=== PATIENT | male | born 1945 | race Caucasian/White ===

== ENCOUNTER 2018-09-19 10:05 | Inpatient (IN) ==
--- NOTE | 2018-09-19 10:26 | Emergency Department Note ---
Disposition Clinical Impression: Sepsis, Altered mental status, Anemia, Hypoxia, Near syncope, Prostatitis, Colitis Disposition: Admitted As Inpatient Condition: Serious Forms: ED Satisfaction Letter Time of Disposition: 14:22 Altered Mental Status HPI - General Chief Complaint: ED Altered Mental Status Stated Complaint: AMS in and out Time Seen by Provider: 09/19/18 10:05 Source: patient, EMS Mode of arrival: EMS Limitations: no limitations Nursing Notes Reviewed: Yes Vital Signs Reviewed: Yes - History of Present Illness HPI Narrative: 73-year-old male who presents emergency room his had near syncopal episode work. 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 He denies fever chills joint aches rash or lesions. He denies any abdominal pain. Denies any blurred vision double vision loss vision. She states that he just cannot explain how he is feeling. Recently started on Augmentin for sinus infection. He denies any shortness of breath chest patches pressure that would be consistent with a anaphylactic type reaction. Patient just states he just does not feel well and explained. He states this is not like it was when he had his cardiac event also systems have been reviewed and are limited with complete entire review systems. 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 Review of Systems: As Per HPI Constitutional: Reports: weakness. Denies: fever, chills Eyes: Denies: eye pain, eye discharge ENT ED: Denies: ear pain, throat pain Cardiovascular: Reports: syncope. Denies: chest pain, palpitations Respiratory: Denies: cough, dyspnea Gastrointestinal: Reports: nausea, vomiting. Denies: abdominal pain Genitourinary: Denies: urgency, dysuria, frequency Musculoskeletal: Denies: back pain, neck pain Integumentary: Denies: rash Neurological: Reports: weakness, confusion. Denies: headache Psychiatric: Denies: anxiety Endocrine: Reports: fatigue. Denies: heat or cold intolerance Hematological/Lymphatic: Denies: easy bleeding, easy bruising Allergic/Immunologic: Denies: facial swelling Past Medical History - Past Medical History Attestation: Yes The following information was validated with the patient. Source: patient, old records reviewed, obtained from family, nursing notes reviewed Medical history: Reports: coronary artery disease, GERD, hyperlipidemia, hypertension, thyroid disease, other Surgical history: Reports: coronary bypass (CABG) (99% blockage left main; performed at [facility] 12/27/2014; Sees Dr. Prasad and Dr. Recinos.), herniorrhaphy, other (Orchiopexy; Laser vaporization of prostate May 21, 2016) Psychiatric history: Reports: no psych history - Social History Smoking Status: Never smoker Smokeless Tobacco Status: No Alcohol use: Reports: none Drug use: Reports: none Physical Exam - General Limitations: no limitations General appearance: alert, in no apparent distress - Head Head exam: atraumatic, normocephalic, normal inspection - Eye Eye exam: Present: normal appearance, PERRL, EOMI - ENT ENT exam: normal exam, normal oropharynx, mucous membranes moist, TM's normal bilaterally, normal external ear exam - Neck Neck exam: Present: normal inspection, full ROM, trachea midline - Chest Chest inspection: Present: normal inspection, symmetric chest wall rise - Respiratory Respiratory exam: Present: normal lung sounds bilaterally - Cardiovascular Cardiovascular exam: Present: regular rate, normal rhythm, normal heart sounds - Abdominal Exam Abdominal exam: Present: soft, tenderness, distention, hyperactive bowel sounds. Absent: mass, pulsatile mass - Expanded Upper Extremity Exam Shoulder exam: Present: normal inspection, full ROM Arm exam: Present: normal inspection, full ROM Elbow exam: Present: normal inspection, full ROM Forearm/Wrist exam: Present: normal inspection, full ROM Hand exam: Present: normal inspection, full ROM Vascular exam: Normal: capillary refill, radial pulse - Expanded Lower Extremity Exam Hip/Pelvis exam: Present: normal inspection, full ROM Upper leg exam: Present: normal inspection, full ROM Knee exam: Present: normal inspection, full ROM Lower leg exam: Present: normal inspection, full ROM Ankle exam: Present: normal inspection, full ROM Foot/toe exam: Present: normal inspection, full ROM Neurovascular/Tendon exam: Present: normal capillary refill, normal fine/light touch. Absent: motor deficit, sensory deficit, tendon deficit Gait: observed and normal - Back Exam Back exam: Present: normal inspection, full ROM. Absent: muscle spasm - Neurological Exam Neurological exam: Present: alert, oriented X3, CN II-XII intact - Psychiatric Psychiatric exam: Present: normal affect, normal mood - Skin Skin exam: Present: warm, intact, normal color, diaphoresis Course Course Narrative: Patient was immediately seen and evaluated laboratory data was done we were concerned about the possibility of an abdominal aortic aneurysm by his presentation as well as myocardial infarctions stroke patient was shoveling signs of altered mental status and is result started and fluid resuscitation was started weight 160 this patient received fluids altered mental status significantly started to improve but he still could not denies pain or discomfort he was recently started on antibiotics for sinus infection even be concerned for C. difficile. Patient arrived here felt that he needed to sit on a bedside and wanted push with patient to the traffic monitor specialist patient defecated a large voluminous stool followed by a second fairly large was more liquid. During this time the patient's d-dimer came back at over 10,[address] had a [address] PE study and aware that the patient only has one kidney but also the greatest risk for this being consistent with a thrombus within the vascular system I possible the phone contact with his daughter Nuris in regards to this lab findings and the importance of following up which she is understanding because of the patient's condition went ahead and CAT scanned his abdomen and pelvis region to make sure that there was no intra-abdominal process which should be consistent with abdominal aortic aneurysm or bowel obstruction or infectious process white count came back at normal but his hemoglobin and hematocrit showed that he had anemia in reviewing of chemistries he had an elevated d-dimer elevated lactic acid and had a decreased CO2 which is more consistent with him being dehydrated and possibly being septic as result the patient will be admitted I spoke with patient and the daughter they are both agreeable and IV hydrating we placed him on anabolic's for the colitis prostatitis which is visualized WE also advised the family that he does have gallstones but does not appear to be consistent with acute cholecystitis patient showed significant im provement with the fluid resuscitation with place him on Flagyl and Cipro transferred to [facility] improved and stable Vital Signs Temperature 96.9 F L 09/19/18 10:07 Pulse Rate 72 09/19/18 10:07 Respiratory Rate 22 09/19/18 10:07 Blood Pressure 95/55 09/19/18 10:07 O2 Sat by Pulse Oximetry 76 09/19/18 10:07 Temperature 96.9 F L 09/19/18 10:07 Pulse Rate 70 09/19/18 12:24 Respiratory Rate 18 09/19/18 12:24 Blood Pressure 149/71 09/19/18 12:24 O2 Sat by Pulse Oximetry 99 09/19/18 12:24 Oxygen Delivery Oxygen Delivery Oximizer Altered Mental Status - Differential Diagnosis Likely: altered mental status, hypoglycemia, hyponatremia, sepsis - Medical Records Medical records reviewed: Yes I reviewed the patient's medical records. - Lab Data Lab results reviewed: Yes I reviewed the patient's lab results. Result diagrams: 09/19/18 10:40 09/19/18 10:40 Lab Results 09/19/18 09/19/18 09/19/18 Range/Units 10:40 10:40 10:40 WBC 5.0 (4.3-11.1) K/mcL RBC 5.28 (4.19-5.50) M/mcL Hgb 10.3 L (12.9-16.9) g/dL Hct 35.3 L (37.5-50.1) % MCV 66.9 L (83.0-100.0) fL MCH 19.5 L (28.0-33.3) pg MCHC 29.2 L (31.6-35.5) g/dL RDW 22.3 H (11.5-14.5) % Plt Count 252 (140-400) K/mcL MPV TNP Immature Gran % 0.4 (0-4) % Seg Neutrophils % 70.9 % Lymphocytes % 22.7 % Monocytes % 3.0 % Eosinophils % 2.8 % Basophils % 0.2 % Neutrophils # 3.6 (1.6-8.9) K/mcL Lymphocytes # 1.1 (0.6-4.6) K/mcL Monocytes # 0.2 (0.0-1.3) K/mcL Eosinophils # 0.1 (0.0-0.6) K/mcL Basophils # 0.0 (0.0-0.2) K/mcL Polychromasia 1+ A (Not Present) Hypochromasia Present A (Not Present) Poikilocytosis 1+ A (Not Present) Anisocytosis 2+ A (Not Present) Microcytosis Present A (Not Present) PT 12.9 H (9.4-12.1) Seconds INR 1.1 APTT 29.2 (26.0-36.0) Seconds D-Dimer [id number] H (0-500) ng/mLFEU Sample Site ABG pH (7.32-7.45) pH Units ABG pCO2 (35-45) mmHg ABG pO2 (85-104) mmHg ABG HCO3 (21-27) mEq/L ABG Total CO2 (20-26) mEq/L ABG O2 Saturation (95-98) % ABG Base Excess (-2 to 3) mEq/L Eligio Test O2 Delivery Device Inspired O2 (1-15=lpm [id number]=%) Sodium 137 (136-145) mEq/L Potassium 3.5 (3.5-5.1) mEq/L Chloride 104 (98-107) mEq/L Carbon Dioxide 20 L (23-29) mEq/L BUN 19 (8-23) mg/dL Creatinine 1.25 (0.70-1.30) mg/dL Est GFR ( Amer) > 60 (> 60) Est GFR (Non-Af Amer) 57 L (> 60) BUN/Creatinine Ratio 15 (6-26) Glucose 213 H (70-105) mg/dL Calculated Osmolality 293 (280-300) Lactic Acid (0.5-2.2) mmol/L Calcium 8.3 L (8.6-10.3) mg/dL Total Bilirubin 0.5 (0.3-1.0) mg/dL AST 19 (13-39) Units/L ALT 13 (7-52) Units/L Alkaline Phosphatase 60 (34-104) Units/L Troponin I < 0.03 (< 0.04) ng/mL Serum Total Protein 6.4 (6.4-8.9) g/dL Albumin 3.5 (3.5-5.7) g/dL Globulin 2.9 (2.4-3.5) g/dL Albumin/Globulin Ratio 1.2 (1.1-2.2) TSH (0.340-5.600) mcIU/mL Person Notif of Crit 09/19/18 09/19/18 09/19/18 Range/Units 10:40 10:40 10:54 WBC (4.3-11.1) K/mcL RBC (4.19-5.50) M/mcL Hgb (12.9-16.9) g/dL Hct (37.5-50.1) % MCV (83.0-100.0) fL MCH (28.0-33.3) pg MCHC (31.6-35.5) g/dL RDW (11.5-14.5) % Plt Count (140-400) K/mcL MPV Immature Gran % (0-4) % Seg Neutrophils % % Lymphocytes % % Monocytes % % Eosinophils % % Basophils % % Neutrophils # (1.6-8.9) K/mcL Lymphocytes # (0.6-4.6) K/mcL Monocytes # (0.0-1.3) K/mcL Eosinophils # (0.0-0.6) K/mcL Basophils # (0.0-0.2) K/mcL Polychromasia (Not Present) Hypochromasia (Not Present) Poikilocytosis (Not Present) Anisocytosis (Not Present) Microcytosis (Not Present) PT (9.4-12.1) Seconds INR APTT (26.0-36.0) Seconds D-Dimer (0-500) ng/mLFEU Sample Site R Radial ABG pH 7.37 (7.32-7.45) pH Units ABG pCO2 31 L (35-45) mmHg ABG pO2 49 L* (85-104) mmHg ABG HCO3 18 L (21-27) mEq/L ABG Total CO2 19 L (20-26) mEq/L ABG O2 Saturation 84 L (95-98) % ABG Base Excess -6 L (-2 to 3) mEq/L Eligio Test Positive O2 Delivery Device Cannula Inspired O2 4.0 (1-15=lpm ei32-319=%) Sodium (136-145) mEq/L Potassium (3.5-5.1) mEq/L Chloride (98-107) mEq/L Carbon Dioxide (23-29) mEq/L BUN (8-23) mg/dL Creatinine (0.70-1.30) mg/dL Est GFR ( Amer) (> 60) Est GFR (Non-Af Amer) (> 60) BUN/Creatinine Ratio (6-26) Glucose (70-105) mg/dL Calculated Osmolality (280-300) Lactic Acid 3.5 H (0.5-2.2) mmol/L Calcium (8.6-10.3) mg/dL Total Bilirubin (0.3-1.0) mg/dL AST (13-39) Units/L ALT (7-52) Units/L Alkaline Phosphatase (34-104) Units/L Troponin I (< 0.04) ng/mL Serum Total Protein (6.4-8.9) g/dL Albumin (3.5-5.7) g/dL Globulin (2.4-3.5) g/dL Albumin/Globulin Ratio (1.1-2.2) TSH 10.917 H (0.340-5.600) mcIU/mL Person Notif of Enrique Brown - Radiology Data Radiology results reviewed: Yes I reviewed the patient's radiology results. - EKG Data EKG attestation: Yes I reviewed and interpreted this EKG. EKG results narrative: Sinus rhythm rate 72 NM 167 QRS 75 QT 406 access 26 TPA Checklist - LKW: 3-4.5 hrs Add. Warnings/Precautions Patient/family understanding: The patient/family members have been counseled and understood the risk, benefit, and alternatives of treatment. Critical Care Time Critical Care Time: Yes Total Critical Care Time: 35 Attestation: High probability clinically significant life-threatening deterioration patient condition exclusive reportable procedures Sepsis Event Note - Evaluation Sepsis Screen: No Definite Risk Current Stage of Suspected Sepsis: sepsis Possible Source of Sepsis: GI tract/intra-abdominal - Focused Exam Date of Encounter: 09/19/18 Time of Encounter: 13:10 Vital Signs: Vital Signs Temp Pulse Resp BP Pulse Ox 09/19/18 12:24 70 18 149/71 99 09/19/18 12:00 70 18 149/71 96 09/19/18 11:07 65 18 102/52 92 09/19/18 10:28 69 18 108/53 79 09/19/18 10:10 80 09/19/18 10:07 96.9 F L 72 22 95/55 76 Respiratory Exam: Present: CTA bilaterally Cardiovascular Exam: Present: RRR Capillary Refill: < 2 seconds Peripheral Pulse Strength: 3+ normal Peripheral Pulse Location: Radial Skin Exam: normal turgor - Bedside Monitoring Bedside Ultrasound Performed: No Passive Leg raise/fluid bolus: fluid responsive
[2018-09-19] MEDS ORDERED: Isovue-370 500 ML BOTTLE IVP ONE ×2 (10:31→15:25)
[2018-09-19] MEDS: 0.9 % Sodium Chloride 1,000 ML IVC ONE ×2 (10:51→12:30)
[2018-09-19] MEDS ORDERED: *HR* Promethazine 25 MG/ML VIAL IVP ONE (10:53)
[2018-09-19 10:59] LABS: ABG Base Excess -6 mEq/L (-2 to 3); ABG HCO3 18 mEq/L (21-27); ABG Oxygen Saturation 84 % (95-98); ABG PCO2 31 mmHg (35-45); ABG PH 7.37 pH Units (7.32-7.45); ABG PO2 49 mmHg (85-104); ABG TCO2 19 mEq/L (20-26)
[2018-09-19 11:03] LABS: INR 1.1; Prothrombin Time 12.9 Seconds (9.4-12.1)
[2018-09-19 11:06] LABS: Activated Partial Thrombo Time 29.2 Seconds (26.0-36.0)
[2018-09-19 11:15] LABS: Troponin I < 0.03 ng/mL (< 0.04)
[2018-09-19 11:26] LABS: Basophils % 0.2 %; Eosinophils # 0.1 K/mcL (0.0-0.6); Eosinophils % 2.8 %; Hematocrit 35.3 % (37.5-50.1); Hemoglobin 10.3 g/dL (12.9-16.9); Immature Granulocytes % 0.4 % (0-4); Lymphocytes # 1.1 K/mcL (0.6-4.6); Lymphocytes % 22.7 %; Mean Corpuscular HGB Conc 29.2 g/dL (31.6-35.5); Mean Corpuscular Hemoglobin 19.5 pg (28.0-33.3); Mean Corpuscular Volume 66.9 fL (83.0-100.0); Monocytes # 0.2 K/mcL (0.0-1.3); Neutrophils # 3.6 K/mcL (1.6-8.9); Platelet Count 252 K/mcL (140-400); Red Blood Count 5.28 M/mcL (4.19-5.50); Red Cell Distribution Width 22.3 % (11.5-14.5); Segmented Neutrophils % 70.9 %
[2018-09-19 11:40] LABS: Anisocytosis 2+ (Not Present); Hypochromasia Present (Not Present); Microcytosis Present (Not Present); Poikilocytosis 1+ (Not Present); Polychromasia 1+ (Not Present)
[2018-09-19 11:53] LABS: Alanine Aminotransferase 13 Units/L (7-52); Albumin 3.5 g/dL (3.5-5.7); Albumin/Globulin Ratio 1.2 (1.1-2.2); Alkaline Phosphatase 60 Units/L (34-104); Aspartate Amino Transferase 19 Units/L (13-39); BUN/Creatinine Ratio 15 (6-26); Bilirubin,Total 0.5 mg/dL (0.3-1.0); Blood Urea Nitrogen 19 mg/dL (8-23); Calcium 8.3 mg/dL (8.6-10.3); Carbon Dioxide 20 mEq/L (23-29); Chloride 104 mEq/L (98-107); Globulin 2.9 g/dL (2.4-3.5); Glucose 213 mg/dL (70-105); Osmolality,Calculated 293 (280-300); Potassium 3.5 mEq/L (3.5-5.1); Sodium 137 mEq/L (136-145); Total Protein 6.4 g/dL (6.4-8.9); eGFR For African Americans > 60 (> 60); eGFR For Non-African Americans 57 (> 60)
[2018-09-19] MEDS ORDERED: 0.9 % Sodium Chloride 1,000 ML IVC ONE (13:16)
[2018-09-19] MEDS ORDERED: MetroNIDAZOLE 500 MG/100 ML 500 MG/100 ML BAG IVPB ONE (13:16)
[2018-09-19 15:05] LABS: Bilirubin,Urine Negative (Negative); Blood,Urine Negative (Negative); Clarity,Urine Clear (Clear); Color,Urine Yellow (Yellow); Glucose,Urine (UA) Normal (Normal); Ketones,Urine Negative (Negative); Leukocyte Esterase,Urine Negative (Negative); Nitrite,Urine Negative (Negative); Protein,Urine 100 mg/dL (Neg-Trace); Specific Gravity,Urine 1.015 (1.010-1.025); Urobilinogen,Urine Normal (Normal)
[2018-09-19 15:18] LABS: Bacteria,Urine Few per hpf (None-Few); Hyaline Casts,Urine Few per lpf (None-Few); Mucus,Urine Few (Few); Squamous Epithelial Cell,Urine Few per lpf (None-Few)
[2018-09-19] MEDS ORDERED: *HR* Promethazine 25 MG/ML VIAL IVP PRN (15:25)
[2018-09-19] MEDS ORDERED: 0.9 % Sodium Chloride 1,000 ML IVC SCH (15:25)
[2018-09-19] MEDS ORDERED: Naloxone 0.4 MG/ML INJ IVP PRN (15:25)
[2018-09-19] MEDS: MetroNIDAZOLE 500 MG/100 ML 500 MG/100 ML BAG IVPB SCH (16:52)
--- NOTE | 2018-09-19 17:35 | Internal Med History&Physical ---
Date of Encounter: 09/19/18 Time of Encounter: 16:50 Assessment and Plan (1) Colitis Current visit: Yes Status: Acute Etiology not obvious. IV Flagyl and Cipro have been started in emergency room. Pro-calcitonin and fecal lactoferrin will be ordered. Further workup will be done as needed. (2) Syncope Current visit: Yes Status: Acute Possible vasovagal related to anemia and lower abdominal discomfort. Cardiac monitoring has been ordered. Qualifiers: Syncope type: unspecified Qualified Code(s): R55 - Syncope and collapse (3) DM type 2 (diabetes mellitus, type 2) Current visit: Yes Status: Chronic Hemoglobin A1c will be checked in a.m. Qualifiers: Diabetes mellitus predatory animal exterminator insulin use: with predatory animal exterminator use Diabetes mellitus complication status: without complication Qualified Code(s): E11.9 - Type 2 diabetes mellitus without complications; Z79.4 - long-term (current) use of insulin (4) ASHD (arteriosclerotic heart disease) Current visit: Yes Status: Acute Continue Lopressor. Hold aspirin until bleeding has stopped (5) Hypothyroidism Current visit: Yes Status: Chronic TSH was elevated at 10.917 in ER. Synthroid dose will be increased to 175 g daily. Qualifiers: Hypothyroidism type: unspecified Qualified Code(s): E03.9 - Hypothyroidism, unspecified (6) Anemia Current visit: Yes Status: Acute Microcytic. Suspect iron deficiency from chronic blood loss. Anemia testing will be done in a.m. He will likely need parenteral iron infusion. Qualifiers: Anemia type: iron deficiency Iron deficiency anemia type: unspecified iron deficiency Qualified Code(s): D50.9 - Iron deficiency anemia, unspecified Internal Medicine - H&P: HPI Chief complaint: Syncope, microcytic anemia Admitted From: Emergency Dept Plans for Post Hospital Care: Home History of present illness: Mr. Salguero is a 73 year old male who was brought to the ER after experiencing a syncopal episode while doing routine activities while sitting at work. He denies any pain. He reports having sensation of leg cramps, numb lips, and pruritus of his hands shortly before experiencing the syncopal episode. He was evaluated in emergency room and was found to have markedly elevated d-dimer. Chest CTA showed no PE. Abdominal CT showed mild colonic thickening without evidence of inflammation. He had an episode of hematochezia in emergency room. He was admitted to [facility] floor for ongoing care needs. He reports receiving a prescription for Augmentin and probiotic from his PCP yesterday for a diagnosis of sinusitis. He reports taking one Augmentin pill last evening. He experienced leg cramps numbness of lips and pruritus of his hands last evening also. He denies previous melena or hematochezia. His most recent colonoscopy was approximately 2004. He denies disorders of his liver gallbladder or exocrine pancreas. Asymptomatic cholelithiasis was identified on abdominal CT in emergency room. Past Med Surg Social Fam HX - Past Medical History Medical history: coronary artery disease, GERD, hyperlipidemia, hypertension, thyroid disease, other Additional medical history: prostate Psychiatric history: no psych history - Past Surgical History Surgical History: coronary bypass (CABG) (99% blockage left main; performed at [facility] 12/27/2014; Sees Dr. Prasad and Dr. Recinos.), herniorrhaphy, other (Orchiopexy; Laser vaporization of prostate May 21, 2016) Additional surgical history: hernia. right testicle. double bypass - Social History Smoking Status: Never smoker Smokeless Tobacco Status: No Alcohol use: none Drug use: none Internal Medicine - H&P: Meds Aspirin Enteric Coated [Aspirin EC] 81 mg PO DAILY 12/25/14 [History] Levothyroxine [Synthroid] 125 mcg PO 0630 12/25/14 [History] Atorvastatin [Lipitor] 10 mg PO HS 05/14/17 [History] Metoprolol Tartrate [Lopressor] 25 mg PO DAILY 05/14/17 [History] Amoxicillin/Clavulanate [Augmentin] 875 mg PO BIDWM 09/19/18 [History] Allergy/AdvReac Type Severity Reaction Status Date / Time No Known Allergies Allergy Verified 12/20/17 21:39 All Systems PM: A 10-system review of systems was performed and is negative for pertinent f indings except as documented above in the HPI. Review of systems: Gen.: He states his weight has decreased approximately 8 pounds in the past year, intentionally Cardiovascular: He has history of hypertension and known ASHD status post [place] 2 in 2014. He underwent 3 vessel CABG 2014 but has had no follow-up heart cath or stress test. He denies known heart failure DVT or pulmonary embolus. Respiratory: He is a lifelong nonsmoker and denies known chronic lung disease. GI: As per history of present illness : He has congenitally absent left kidney. He had the mental hernia repair and left undescended testicle removed. He had laser ablation treatment to the prostate twice. 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 Neurologic: He denies large distribution strokes or seizures. Endocrine: He has been diagnosed with borderline DM 2. He has hyperlipidemia and hypothyroidism Hematology/oncology: He was unaware he had anemia on labs in emergency room. He denies internal malignancies or other blood disorders Psychiatric: He denies anxiety depression or other mental health issues [place] skeletal: He denies arthritis gout or other bone joint or muscle disorders. - Constitutional Vitals: Temp Pulse Resp BP Pulse Ox 97.5 F L 66 18 166/79 100 09/19/18 15:31 09/19/18 15:31 09/19/18 15:31 09/19/18 15:31 09/19/18 15:31 Exam: Gen.: He is a well-developed well-nourished male resting comfortably in bed who appears in no significant distress HEENT: Head is atraumatic and normocephalic. Eyes: EOMI. There is no scleral icterus. Mouth: Mucosa is moist. Neck: Supple and nontender. There is no thyromegaly or adenopathy noted. Heart: Regular without murmurs gallops or ectopics Lungs: No wheezes or crackles are heard. Abdomen: Soft and nontender. No masses or guarding are noted. Extremities: There is no cyanosis edema or clubbing noted. Dorsalis pedis and posterior tibial pulses are 1-2 over 2 bilaterally. Neurologic: Mental status: He is talkative and a good historian. Cranial nerves: Smile is symmetric. Forehead wrinkles bilaterally. Tongue protrudes midline. EOMI. Motor: There is no pronator drift. Cerebellar: Finger to nose is intact bilaterally. Skin: Warm and dry Internal Med - H&P Results - Labs CBC & Chem 7: 09/19/18 10:40 09/19/18 10:40 Labs: Short CBC 09/19/18 Range/Units 10:40 WBC 5.0 (4.3-11.1) K/mcL Hgb 10.3 L (12.9-16.9) g/dL Hct 35.3 L (37.5-50.1) % Plt Count 252 (140-400) K/mcL Neutrophils # 3.6 (1.6-8.9) K/mcL BMP 09/19/18 10:40 Sodium 137 Potassium 3.5 Chloride 104 Carbon Dioxide 20 L BUN 19 Creatinine 1.25 Glucose 213 H Calcium 8.3 L Cardiac Enzymes 09/19/18 Range/Units 10:40 Troponin I < 0.03 (< 0.04) ng/mL Liver Function 09/19/18 Range/Units 10:40 Total Bilirubin 0.5 (0.3-1.0) mg/dL AST 19 (13-39) Units/L ALT 13 (7-52) Units/L Alkaline Phosphatase 60 (34-104) Units/L Albumin 3.5 (3.5-5.7) g/dL Urine 09/19/18 Range/Units 14:55 Urine Color Yellow (Yellow) Urine Clarity Clear (Clear) Urine pH 5.0 (5.0-8.0) pH Units Ur Specific [place] 1.015 (1.010-1.025) Urine Protein 100 H (Neg-Trace) mg/dL Urine Glucose (UA) Normal (Normal) mg/dL - ABG Interpretation ABG results: 09/19/18 10:54 ABG pH 7.37 ABG pCO2 31 L ABG pO2 49 L* ABG HCO3 18 L ABG Total CO2 19 L ABG O2 Saturation 84 L ABG Base Excess -6 L - Impressions ITS Impressions Abdomen/Pelvis CT 09/19/18 10:28 IMPRESSION: 1. Mild free fluid within the pelvis is abnormal for a male but the etiology is indeterminate. 2. Cholelithiasis. 3. Nonspecific mild wall thickening of the sigmoid colon without associated inflammation. This could be due to peristalsis. Consider correlation with nonemergent colonoscopy if not recently performed. 4. Prostate is enlarged and heterogeneous. Findings could relate to prostatitis although malignancy would be difficult to exclude. Correlate with PSA. Nonemergent prostate MRI can be performed if clinically indicated. 5. 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 The left testicle is not visualized and could also be absent. D/ / 09/19/2018 12:25:18 Rinku Baugh MD / Sydney Ulloa Interpreting Provider: Rinku Baugh MD Head CT 09/19/18 10:28 IMPRESSION: No acute intracranial abnormality. Mild cerebral atrophy appropriate for age. Mild chronic ischemic change also age-appropriate. D/ / Prem Townsend MD / Prem Townsend MD Interpreting Provider: Prem Townsend MD Chest CTA 09/19/18 10:31 IMPRESSION: 1. No evidence for acute pulmonary embolism. 2. No evidence for pneumonia. D/ / Enrike Rogers MD / Enrike Rogers MD Interpreting Provider: Enrike Rogers MD
[2018-09-19] MEDS: 0.45 % Sodium Chloride w/KCl 20 MEQ/1,000 ML MLS IVC SCH (19:31)
[2018-09-19] MEDS: Loratadine 10 MG TABLET PO SCH (21:22)
[2018-09-20] MEDS: MetroNIDAZOLE 500 MG/100 ML 500 MG/100 ML BAG IVPB SCH ×3 (00:24→16:50)
[2018-09-20 05:25] LABS: Basophils % 0.1 %; Eosinophils # 0.1 K/mcL (0.0-0.6); Eosinophils % 1.4 %; Hematocrit 26.4 % (37.5-50.1); Immature Granulocytes % 0.3 % (0-4); Lymphocytes # 0.9 K/mcL (0.6-4.6); Lymphocytes % 11.8 %; Mean Corpuscular HGB Conc 29.5 g/dL (31.6-35.5); Mean Corpuscular Hemoglobin 19.6 pg (28.0-33.3); Mean Corpuscular Volume 66.5 fL (83.0-100.0); Mean Platelet Volume 10.1 fL (9.4-12.4); Monocytes # 0.4 K/mcL (0.0-1.3); Monocytes % 5.5 %; Neutrophils # 5.9 K/mcL (1.6-8.9); Platelet Count 175 K/mcL (140-400); Red Blood Count 3.97 M/mcL (4.19-5.50); Red Cell Distribution Width 21.8 % (11.5-14.5); Segmented Neutrophils % 80.9 %; White Blood Count 7.3 K/mcL (4.3-11.1)
[2018-09-20 05:29] LABS: Hemoglobin 7.8 g/dL (12.9-16.9)
[2018-09-20 05:44] LABS: Alanine Aminotransferase 10 Units/L (7-52); Albumin 3.2 g/dL (3.5-5.7); Albumin/Globulin Ratio 1.3 (1.1-2.2); Alkaline Phosphatase 43 Units/L (34-104); Aspartate Amino Transferase 15 Units/L (13-39); BUN/Creatinine Ratio 15 (6-26); Bilirubin,Total 0.5 mg/dL (0.3-1.0); Blood Urea Nitrogen 15 mg/dL (8-23); Calcium 7.8 mg/dL (8.6-10.3); Carbon Dioxide 24 mEq/L (23-29); Chloride 105 mEq/L (98-107); Chol/HDL Ratio 3.1 (0-4.9); Cholesterol 55 mg/dL (< 200); Globulin 2.4 g/dL (2.4-3.5); Glucose 135 mg/dL (70-105); HDL Cholesterol 18 mg/dL (40-59); LDL Cholesterol,Calculated 20 mg/dL (0-99); Magnesium 1.7 mg/dL (1.6-2.6); Osmolality,Calculated 283 (280-300); Potassium 4.2 mEq/L (3.5-5.1); Sodium 135 mEq/L (136-145); Total Protein 5.6 g/dL (6.4-8.9); Triglycerides 83 mg/dL (< 150); eGFR For African Americans > 60 (> 60); eGFR For Non-African Americans > 60 (> 60)
[2018-09-20 05:52] LABS: Anisocytosis 1+ (Not Present); Hypochromasia Present (Not Present)
[2018-09-20 05:53] LABS: Microcytosis Present (Not Present); Polychromasia 1+ (Not Present)
[2018-09-20] MEDS: 0.45 % Sodium Chloride w/KCl 20 MEQ/1,000 ML MLS IVC SCH (05:55)
[2018-09-20 05:58] LABS: Thyroid Stimulating Hormone 2.456 mcIU/mL (0.340-5.600)
[2018-09-20] MEDS: Loratadine 10 MG TABLET PO SCH (08:38)
[2018-09-20 09:00] LABS: Protein/Creatinine Ratio,Urine 0.2 mg/mg (0.00-0.20)
[2018-09-20] MEDS ORDERED: Aspirin Enteric Coated 81 MG Tablet PO SCH (09:00)
[2018-09-20 09:01] LABS: Estimated Average Glucose 148 mg/dl
[2018-09-20 09:40] LABS: Folate > 22.3 ng/mL (3.0-16.0); Vitamin B12 453 pg/mL (250-1100)
--- NOTE | 2018-09-20 10:09 | Internal Med Progress Note ---
Date of Encounter: 09/20/18 Time of Encounter: 10:00 - Assessment and plan (1) Colitis Current Visit: Yes Status: Acute Assessment and plan: September 20. Pro-calcitonin and fecal lactoferrin pending. Continue IV Flagyl and Cipro. (2) Syncope Current Visit: Yes Status: Acute Assessment and plan: September 20. Continue cardiac monitoring. Orthostatic vital signs will be checked prior to discharge. Qualifiers: Syncope type: unspecified Qualified Code(s): R55 - Syncope and collapse (3) DM type 2 (diabetes mellitus, type 2) Current Visit: Yes Status: Chronic Assessment and plan: September 20. Hemoglobin A1c satisfactory at 6.8%. Qualifiers: Diabetes mellitus snf insulin use: with snf use Diabetes mellitus complication status: without complication Qualified Code(s): E11.9 - Type 2 diabetes mellitus without complications; Z79.4 - [facility] (current) use of insulin (4) ASHD (arteriosclerotic heart disease) Current Visit: Yes Status: Acute Assessment and plan: September 20. Continue Lopressor and remain off aspirin. (5) Hypothyroidism Current Visit: Yes Status: Chronic Assessment and plan: September 20. Continue Synthroid 175 g daily. Qualifiers: Hypothyroidism type: unspecified Qualified Code(s): E03.9 - Hypothyroidism, unspecified (6) Anemia Current Visit: Yes Status: Acute Assessment and plan: September 20. Hemoglobin has decreased to 7.8. Anemia testing showed iron 10, transferrin saturation 3%, transferrin 207, ferritin 14, B12 453, and folate> 22.3. He will receive iron dextran infusion. Qualifiers: Anemia type: iron deficiency Iron deficiency anemia type: unspecified iron deficiency Qualified Code(s): D50.9 - Iron deficiency anemia, unspecified (7) Azotemia Current Visit: Yes Status: Acute Assessment and plan: September 20. Creatinine has decreased to 1.01 with estimated GFR greater than 60. Decrease IV fluid rate and recheck labs in a.m. - Subjective Interval history: September 20. He has no new complaints. He still has mild lower abdominal discomfort but denies pain. - Constitutional Vitals: Temp Pulse Resp BP Pulse Ox 98.4 F 68 18 153/70 97 09/20/18 06:36 09/20/18 08:31 09/20/18 06:36 09/20/18 08:31 09/20/18 08:31 Exam: He is resting comfortably in bed and appears in no acute distress. Abdomen shows bowel sounds present. There is no guarding or rebound. I reviewed his medications and lab results. Internal Medicine: Result - Labs CBC & Chem 7: 09/20/18 05:10 09/20/18 05:10 Labs: Short CBC 09/19/18 09/20/18 Range/Units 10:40 05:10 WBC 5.0 7.3 (4.3-11.1) K/mcL Hgb 10.3 L 7.8 L D (12.9-16.9) g/dL Hct 35.3 L 26.4 L (37.5-50.1) % Plt Count 252 175 (140-400) K/mcL Neutrophils # 3.6 5.9 (1.6-8.9) K/mcL BMP 09/19/18 09/20/18 10:40 05:10 Sodium 137 135 L Potassium 3.5 4.2 Chloride 104 105 Carbon Dioxide 20 L 24 BUN 19 15 Creatinine 1.25 1.01 Glucose 213 H 135 H Calcium 8.3 L 7.8 L Cardiac Enzymes 09/19/18 Range/Units 10:40 Troponin I < 0.03 (< 0.04) ng/mL Liver Function 09/19/18 09/20/18 Range/Units 10:40 05:10 Total Bilirubin 0.5 0.5 (0.3-1.0) mg/dL AST 19 15 (13-39) Units/L ALT 13 10 (7-52) Units/L Alkaline Phosphatase 60 43 (34-104) Units/L Albumin 3.5 3.2 L (3.5-5.7) g/dL Urine 09/19/18 Range/Units 14:55 Urine Color Yellow (Yellow) Urine Clarity Clear (Clear) Urine pH 5.0 (5.0-8.0) pH Units Ur Specific [place] 1.015 (1.010-1.025) Urine Protein 100 H (Neg-Trace) mg/dL Urine Glucose (UA) Normal (Normal) mg/dL - ABG Interpretation ABG results: ABG ABG pH 7.37 pH Units (7.32-7.45) 09/19/18 10:54 ABG pCO2 31 mmHg (35-45) L 09/19/18 10:54 ABG pO2 49 mmHg (85-104) L* 09/19/18 10:54 ABG O2 Saturation 84 % (95-98) L 09/19/18 10:54 PT/INR, D-dimer PT 12.9 Seconds (9.4-12.1) H 09/19/18 10:40 86543 ng/mLFEU (0-500) H 09/19/18 10:40 - Impressions Impressions Abdomen/Pelvis CT 09/19/18 10:28 IMPRESSION: 1. Mild free fluid within the pelvis is abnormal for a male but the etiology is indeterminate. 2. Cholelithiasis. 3. Nonspecific mild wall thickening of the sigmoid colon without associated inflammation. This could be due to peristalsis. Consider correlation with nonemergent colonoscopy if not recently performed. 4. Prostate is enlarged and heterogeneous. Findings could relate to prostatitis although malignancy would be difficult to exclude. Correlate with PSA. Nonemergent prostate MRI can be performed if clinically indicated. 5. 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 The left testicle is not visualized and could also be absent. D/ / 09/19/2018 12:25:18 Rinku Baugh MD / Sydney Ulloa Interpreting Provider: Rinku Baugh MD Head CT 09/19/18 10:28 IMPRESSION: No acute intracranial abnormality. Mild cerebral atrophy appropriate for age. Mild chronic ischemic change also age-appropriate. D/ / Prem Townsend MD / Prem Townsend MD Interpreting Provider: Prem Townsend MD Chest CTA 09/19/18 10:31 IMPRESSION: 1. No evidence for acute pulmonary embolism. 2. No evidence for pneumonia. D/ / Enrike Rogers MD / Enrike Rogers MD Interpreting Provider: Enrike Rogers MD Consult Discharge Plan - Plan Referrals: Sung Brown MD [Primary Care Provider] - 1 week
[2018-09-20] MEDS ORDERED: IRON DEXTRAN COMPLEX IVPB ONE (10:15)
[2018-09-20] MEDS ORDERED: SODIUM CHLORIDE 0.9% IVPB ONE (10:15)
--- NOTE | 2018-09-20 16:32 | Electrocardiograph Report ---
[place] [id number] Test Date: 2018-09-19 Pat Name: Ryan Salguero Department: EDP-15 Room: [facility] Gender: M Car Body Mechanic: : [id number] Requested By: Vikki Brown Order Number: [id number] Reading MD: Keshav Parish Measurements Intervals [place] Rate: 72 P: 20 [place]: 167 QRS: 26 QRSD: 75 T: 19 QT: 406 QTc: 445 Interpretive Statements Sinus rhythm Ventricular premature complex Electronically Signed On 09-20-2018 16:30:40 EDT by Keshav Parish
[2018-09-20 21:47] LABS: Acinetobacter baumannii by PCR Not Detected (Not Detect); Candida albicans by PCR Not Detected (Not Detect); Candida glabrata by PCR Not Detected (Not Detect); Candida krusei by PCR Not Detected (Not Detect); Candida parapsilosis by PCR Not Detected (Not Detect); Candida tropicalis by PCR Not Detected (Not Detect); Enterobacter cloacae Cmplx PCR Not Detected (Not Detect); Enterobacteriaceae by PCR Not Detected (Not Detect); Enterococcus by PCR Not Detected (Not Detect); Escherichia coli by PCR Not Detected (Not Detect); Klebsiella oxytoca by PCR Not Detected (Not Detect); Klebsiella pneumoniae by PCR Not Detected (Not Detect); Proteus by PCR Not Detected (Not Detect); Pseudomonas aeruginosa by PCR Not Detected (Not Detect); Serratia marcescens by PCR Not Detected (Not Detect); Staphylococcus aureus by PCR Not Detected (Not Detect); Staphylococcus by PCR Not Detected (Not Detect); Streptococcus agalactiae(B)PCR Not Detected (Not Detect); Streptococcus by PCR Not Detected (Not Detect); Streptococcus pneumoniae PCR Not Detected (Not Detect); Streptococcus pyogenes (A) PCR Not Detected (Not Detect); blaKPC Carbapenem-Resist Gene Not Detected (Not Detect); mecA Methicillin-Resist Gene Not Detected (Not Detect); vanA/B Vancomycin-Resist Genes Not Detected (Not Detect)
[2018-09-21] MEDS: MetroNIDAZOLE 500 MG/100 ML 500 MG/100 ML BAG IVPB SCH ×3 (00:50→16:11)
[2018-09-21] MEDS: 0.45 % Sodium Chloride w/KCl 20 MEQ/1,000 ML MLS IVC SCH ×2 (02:00→13:18)
[2018-09-21 06:25] LABS: Basophils % 0.2 %; Eosinophils # 0.4 K/mcL (0.0-0.6); Eosinophils % 4.1 %; Hematocrit 27.3 % (37.5-50.1); Hemoglobin 7.9 g/dL (12.9-16.9); Immature Granulocytes % 0.4 % (0-4); Lymphocytes # 1.5 K/mcL (0.6-4.6); Lymphocytes % 17.2 %; Mean Corpuscular HGB Conc 28.9 g/dL (31.6-35.5); Mean Corpuscular Hemoglobin 19.6 pg (28.0-33.3); Mean Corpuscular Volume 67.7 fL (83.0-100.0); Monocytes # 0.5 K/mcL (0.0-1.3); Monocytes % 6.1 %; Neutrophils # 6.1 K/mcL (1.6-8.9); Platelet Count 173 K/mcL (140-400); Red Blood Count 4.03 M/mcL (4.19-5.50); Red Cell Distribution Width 22.1 % (11.5-14.5); White Blood Count 8.5 K/mcL (4.3-11.1)
[2018-09-21 06:55] LABS: BUN/Creatinine Ratio 9 (6-26); Blood Urea Nitrogen 9 mg/dL (8-23); Calcium 8.5 mg/dL (8.6-10.3); Carbon Dioxide 26 mEq/L (23-29); Chloride 103 mEq/L (98-107); Glucose 109 mg/dL (70-105); Osmolality,Calculated 279 (280-300); Potassium 3.9 mEq/L (3.5-5.1); Sodium 135 mEq/L (136-145); eGFR For African Americans > 60 (> 60); eGFR For Non-African Americans > 60 (> 60)
[2018-09-21 07:52] LABS: Anisocytosis 1+ (Not Present); Hypochromasia Present (Not Present); Microcytosis Present (Not Present)
[2018-09-21] MEDS: Loratadine 10 MG TABLET PO SCH (08:22)
--- NOTE | 2018-09-21 10:04 | Internal Med Progress Note ---
Date of Encounter: 09/21/18 Time of Encounter: 09:55 - Assessment and plan (1) Gram-negative bacteremia Current Visit: Yes Status: Acute Assessment and plan: September 21. Continue IV Flagyl and Cipro. Await final blood culture report with sensitivity. (2) Colitis Current Visit: Yes Status: Acute Assessment and plan: September 20. Pro-calcitonin and fecal lactoferrin pending. Continue IV Flagyl and Cipro. September 21. Pro-calcitonin level elevated at 0.98. Fecal lactoferrin pending. Continue IV Flagyl and Cipro. (3) Syncope Current Visit: Yes Status: Acute Assessment and plan: September 20. Continue cardiac monitoring. Orthostatic vital signs will be checked prior to discharge. Qualifiers: Syncope type: unspecified Qualified Code(s): R55 - Syncope and collapse (4) DM type 2 (diabetes mellitus, type 2) Current Visit: Yes Status: Chronic Assessment and plan: September 20. Hemoglobin A1c satisfactory at 6.8%. 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 Continue Lopressor and remain off aspirin. (6) Hypothyroidism Current Visit: Yes Status: Chronic Assessment and plan: September 20. Continue Synthroid 175 g daily. Qualifiers: Hypothyroidism type: unspecified Qualified Code(s): E03.9 - Hypothyroidism, unspecified (7) Anemia Current Visit: Yes Status: Acute Assessment and plan: September 20. Hemoglobin has decreased to 7.8. Anemia testing showed iron 10, transferrin saturation 3%, transferrin 207, ferritin 14, B12 453, and folate> 22.3. He will receive iron dextran infusion. September 21. Hemoglobin stable at 7.9. Continue to monitor Qualifiers: Anemia type: iron deficiency Iron deficiency anemia type: unspecified iron deficiency Qualified Code(s): D50.9 - Iron deficiency anemia, unspecified (8) Azotemia Current Visit: Yes Status: Acute Assessment and plan: September 20. Creatinine has decreased to 1.01 with estimated GFR greater than 60. Decrease IV fluid rate and recheck labs in a.m. Lupe 6. Creatinine stable at 1.01. Oral intake adequate. Discontinue IV flu ids. - Subjective Interval history: September 20. He has no new complaints. He still has mild lower abdominal discomfort but denies pain. September 21. He has no new complaints and feels better. His abdominal pain has significantly lessened. - Constitutional Vitals: Temp Pulse Resp BP Pulse Ox 99 F 56 18 157/72 97 09/21/18 06:55 09/21/18 06:55 09/21/18 06:55 09/21/18 06:55 09/21/18 06:55 Exam: He is resting comfortably in bed and appears in no acute distress. His affect is bright and cheerful. I reviewed his medications and lab results. I note gram-negative rods growth in a blood culture. Internal Medicine: Result - Labs CBC & Chem 7: 09/21/18 05:18 09/21/18 05:18 Labs: Short CBC 09/21/18 Range/Units 05:18 WBC 8.5 (4.3-11.1) K/mcL Hgb 7.9 L (12.9-16.9) g/dL Hct 27.3 L (37.5-50.1) % Plt Count 173 (140-400) K/mcL Neutrophils # 6.1 (1.6-8.9) K/mcL BMP 09/21/18 05:18 Sodium 135 L Potassium 3.9 Chloride 103 Carbon Dioxide 26 BUN 9 Creatinine 1.01 Glucose 109 H Calcium 8.5 L - ABG Interpretation ABG results: ABG ABG pH 7.37 pH Units (7.32-7.45) 09/19/18 10:54 ABG pCO2 31 mmHg (35-45) L 09/19/18 10:54 ABG pO2 49 mmHg (85-104) L* 09/19/18 10:54 ABG O2 Saturation 84 % (95-98) L 09/19/18 10:54 PT/INR, D-dimer PT 12.9 Seconds (9.4-12.1) H 09/19/18 10:40 25761 ng/mLFEU (0-500) H 09/19/18 10:40 Consult Discharge Plan - Plan Referrals: Sung Brown MD [Primary Care Provider] - 1 week
[2018-09-22] MEDS: MetroNIDAZOLE 500 MG/100 ML 500 MG/100 ML BAG IVPB SCH ×2 (00:25→07:52)
[2018-09-22 06:29] LABS: Basophils # 0.1 K/mcL (0.0-0.2); Basophils % 0.6 %; Eosinophils # 0.6 K/mcL (0.0-0.6); Eosinophils % 7.6 %; Hemoglobin 7.9 g/dL (12.9-16.9); Immature Granulocytes % 1.2 % (0-4); Lymphocytes # 1.7 K/mcL (0.6-4.6); Lymphocytes % 20.8 %; Mean Corpuscular HGB Conc 29.3 g/dL (31.6-35.5); Mean Corpuscular Hemoglobin 19.5 pg (28.0-33.3); Mean Corpuscular Volume 66.7 fL (83.0-100.0); Mean Platelet Volume 10.2 fL (9.4-12.4); Monocytes # 0.4 K/mcL (0.0-1.3); Monocytes % 5.3 %; Neutrophils # 5.3 K/mcL (1.6-8.9); Platelet Count 186 K/mcL (140-400); Red Blood Count 4.05 M/mcL (4.19-5.50); Segmented Neutrophils % 64.5 %; White Blood Count 8.3 K/mcL (4.3-11.1)
[2018-09-22 06:59] VITALS: BP 147/73
[2018-09-22] MEDS: Loratadine 10 MG TABLET PO SCH (07:52)
[2018-09-22 07:53] LABS: Anisocytosis 1+ (Not Present); Hypochromasia Present (Not Present); Microcytosis Present (Not Present)
--- NOTE | 2018-09-22 10:18 | Discharge Summary ---
Orders not resulted at time of discharge: Pending orders 09/19/18 10:45 Culture,Blood [] Stat Date of Encounter: 09/22/18 Time of Encounter: 10:05 - Discharge Diagnosis (1) Gram-negative bacteremia Priority: Primary Status: Acute (2) Colitis Priority: Secondary Status: Acute (3) Syncope Priority: Secondary Status: Acute Qualifiers: Syncope type: unspecified Qualified Code(s): R55 - Syncope and collapse (4) DM type 2 (diabetes mellitus, type 2) Priority: Secondary Status: Chronic Qualifiers: Diabetes mellitus custodial insulin use: with termite exterminator use Diabetes mellitus complication status: without complication Qualified Code(s): E11.9 - Type 2 diabetes mellitus without complications; 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 Salguero is a 73 year old male who was brought to the ER after experiencing a syncopal episode while doing routine activities while sitting at work. He denies any pain. He reports having sensation of leg cramps, numb lips, and pruritus of his hands shortly before experiencing the syncopal episode. He was evaluated in emergency room and was found to have markedly elevated d-dimer. Chest CTA showed no PE. Abdominal CT showed mild colonic thickening without evidence of inflammation. He had an episode of hematochezia in emergency room. He was admitted to [facility] for ongoing care needs. Initial orders were written by the emergency room physician. I saw him on September 19 and performed a history and physical. He was started on IV Flagyl and Cipro for possible colitis in emergency room. Pro-calcitonin returned elevated at 0.98. One blood culture returned showing gram-negative rods. Final report of culture and sensitivity was pending on day of discharge. The preliminary report showed anaerobic bacteria with expected final report in 10 days. He had good clinical response to Cipro and Flagyl with WBC remained normal and lessening of left shift on differential. He remained afebrile during his hospital course. He will continue with oral Flagyl and Cipro with lactobacillus for one week. His PCP can follow up on culture reports to ensure adequate coverage. Anemia testing showed iron 10, transferrin saturation 3%, transferrin 207, ferritin 14, B12 453, and folate> 22.3. He was given iron dextran infusion. His PCP can monitor. TSH returned elevated at 10.917. Synthroid dose was increased to 175 g daily. Hemoglobin was stable at 7.9 on day of discharge, unchanged over the previous 48 hours. He had resolution of melena/hematochezia by day of discharge. Orthostatic vital signs showed no significant change from lying to standing. Aspirin was held during hospitalization and he will remain off this until he follows with his PCP. On September 22 he felt stable for discharge home. He will follow with his PCP Dr. Brown within 1 week. He may return to work September 25 if stable. - Time Spent with Patient Total time spent providing and/or coordinating discharge services: - Discharge Medications Prescriptions: New Ciprofloxacin [Cipro] 500 mg PO BID #14 tablet Lactobacillus [Culturelle] 1 each PO BID #14 cap.sprink metroNIDAZOLE [Flagyl] 500 mg PO Q8H #21 tablet Levothyroxine [Synthroid] 175 mcg PO 0630 #30 tablet Ondansetron ODT [Zofran ODT] 4 mg SL Q4HR PRN #12 tab.rapdis PRN Reason: Nausea Continued Atorvastatin [Lipitor] 10 mg PO HS Metoprolol Tartrate [Lopressor] 25 mg PO DAILY Discontinued Levothyroxine [Synthroid] 125 mcg PO 0630 Aspirin Enteric Coated [Aspirin EC] 81 mg PO DAILY Amoxicillin/Clavulanate [Augmentin] 875 mg PO BIDWM Home Medications: Atorvastatin [Lipitor] 10 mg PO HS 05/14/17 [History] Metoprolol Tartrate [Lopressor] 25 mg PO DAILY 05/14/17 [History] Ciprofloxacin [Cipro] 500 mg PO BID #14 tablet 09/22/18 [Rx] Lactobacillus [Culturelle] 1 each PO BID #14 cap.sprink 09/22/18 [Rx] Levothyroxine [Synthroid] 175 mcg PO 0630 #30 tablet 09/22/18 [Rx] Ondansetron ODT [Zofran ODT] 4 mg SL Q4HR PRN #12 tab.rapdis 09/22/18 [Rx] metroNIDAZOLE [Flagyl] 500 mg PO Q8H #21 tablet 09/22/18 [Rx] Allergies/Adverse Reactions: Allergy/AdvReac Type Severity Reaction Status Date / Time No Known Allergies Allergy Verified 12/20/17 21:39 Date of admission: 09/20/18 10:14 Primary care physician: Sung Brown MD - Constitutional Vitals: Temp Pulse Resp BP Pulse Ox 98.7 F 56 18 147/73 95 09/22/18 07:00 09/22/18 07:00 09/22/18 07:00 09/22/18 07:00 09/22/18 07:00 - Patient Status Disposition: Home, Self-Care Condition: Serious - Discharge Instructions Follow Up With: Sung Brown MD [Primary Care Provider] - 1 week - Diet and Activity Activity: resume usual activities as tolerated Diet: advance to your usual diet
== END 2018-09-22 11:05 | disposition home or self-care (01) | DRG 872 ==
LOC: EMEROOPIK 10:05 → INPPIK 10:05
PROVIDERS: ADMIT Internal Medicine; ATTEND Internal Medicine